=== PATIENT | male | born 1980 ===

== ENCOUNTER 2022-04-09 21:23 | Emergency (ER) | payer SELFPAY ==
[~2022-04-09] VITALS: Ht 165.1 cm; Wt 75.0 kg
[2022-04-09] MEDS ORDERED: METO50 PO (21:51)
[2022-04-09] MEDS ORDERED: CAPT25TA3 PO (21:51)
[2022-04-09] MEDS ORDERED: IBUPROFEN 600 MG TABLET PO ONE (22:00)
[2022-04-09] MEDS ORDERED: ACETAMINOPHEN 500 MG TABLET PO ONE (22:00)
[2022-04-09 23:01] VITALS: BP 153/107
[2022-04-09] MEDS ORDERED: ACET-66 PO (23:02)
[2022-04-09] MEDS ORDERED: BACL10TA PO (23:02)
[2022-04-09] MEDS ORDERED: IBUP-1554 PO (23:02)
== END 2022-04-10 00:22 | disposition home or self-care (01) ==
LOC: EMS 21:48
DX: S13.4XXA Sprain of ligaments of cervical spine, initial encounter (principal); I10 Essential (primary) hypertension; E78.00 Pure hypercholesterolemia, unspecified; V43.62XA Car passenger injured in collision with other type car in traffic accident, initial encounter; Y93.89 Activity, other specified; Y92.89 Other specified places as the place of occurrence of the external cause; Y99.8 Other external cause status
CPT/HCPCS: 72040; 72100; 99284; 73590-TC; Z7502; Z7610